=== PATIENT | male | born 1985 | race Hispanic/Latino ===

== ENCOUNTER 2017-05-14 07:14 | Emergency (ER) | payer SELFPAY | END 2017-05-14 09:25 | disposition left against medical advice (07) | LOC: ERS 07:14 | DX: Z53.21 Procedure and treatment not carried out due to patient leaving prior to being seen by health care provider (principal) ==

== ENCOUNTER 2017-05-14 16:07 | Emergency (ER) | payer SELFPAY ==
[2017-05-14] MEDS ORDERED: Morphine 2 MG/ML SYRINGE ONE (17:23)
[2017-05-14] MEDS ORDERED: Ibuprofen 800 MG TAB ONE (17:24)
[2017-05-14] MEDS ORDERED: Promethazine HCl 25 MG/ML VIAL ONE (17:24)
== END 2017-05-14 17:48 | disposition home or self-care (01) ==
LOC: ERS 16:07
DX: M54.9 Dorsalgia, unspecified (principal); F17.210 Nicotine dependence, cigarettes, uncomplicated; Z79.891 Long term (current) use of opiate analgesic
CPT/HCPCS: 96372; J2270; J2550

== ENCOUNTER 2017-07-23 22:55 | Emergency (ER) | payer SELFPAY ==
--- NOTE | 2017-07-23 23:47 | RAD ---
THREE VIEWS OF THE LUMBAR SPINE: INDICATIONS: Back pain. FINDINGS: There is a mild to moderate wedge compression fracture of L1, which is new from comparison from 2016. Spinal alignment is within normal limits. No retropulsed bone fragments are evident. No additiona l acute osseous abnormality is noted. IMPRESSION: Interval mild to moderate wedge compression abnormality of L1. New since 2016. POS: [facility]
== END 2017-07-24 02:35 | disposition home or self-care (01) ==
LOC: ERS 22:55
DX: S32.010A Wedge compression fracture of first lumbar vertebra, initial encounter for closed fracture (principal); F17.210 Nicotine dependence, cigarettes, uncomplicated; Y35.893A Legal intervention involving other specified means, suspect injured, initial encounter
CPT/HCPCS: 72100; 99406

== ENCOUNTER 2019-07-03 01:26 | Emergency (ER) | payer OTHER, SELFPAY ==
[2019-07-03] MEDS ORDERED: Acetaminophen 325 MG TAB ONE (03:03)
--- NOTE | 2019-07-03 09:30 | RAD ---
CHEST 1 VIEW: Date: 07/03/19 HISTORY: Cough. COMPARISON: 09/10/15. FINDINGS: Heart size is normal. The lungs are clear. No confluent pneumonia, edema, or pleural effusion. IMPRESSION: No acute intrathoracic disease. No evidence for pneumonia. Stable from prior study. POS: [facility]
== END 2019-07-03 03:40 | disposition home or self-care (01) ==
LOC: ERS 01:26
DX: F41.9 Anxiety disorder, unspecified (principal); B34.9 Viral infection, unspecified; I10 Essential (primary) hypertension; E11.9 Type 2 diabetes mellitus without complications; F32.9 Major depressive disorder, single episode, unspecified; F17.210 Nicotine dependence, cigarettes, uncomplicated; Z79.899 Other long term (current) drug therapy
CPT/HCPCS: 71045; 87804

== ENCOUNTER 2019-09-24 21:49 | Emergency (ER) | payer SELFPAY ==
[2019-09-24 22:21] LABS: #Basophils 0.1 thou/uL (0.0-0.2); #Eosinphils 0.1 thou/uL (0.0-0.7); #Lymphocytes 2.3 thou/uL (1.20-3.40); #Monocytes 0.9 thou/uL (0.11-0.59); #Neutrophils 8.1 thou/uL (1.40-6.50); %Basophils 0.4 % (0.0-1.0); %Eosinophils 0.9 % (0.0-10.0); %Lymphocytes 20.1 % (21.0-51.0); %Monocytes 7.7 % (0.0-10.0); %Neutrophils 70.8 % (42.0-75.0); Hemoglobin 16.1 g/dL (14.0-18.0); Mean Corpuscular HGB CONC 34.2 g/dL (32.0-36.0); Mean Corpuscular Hemoglobin 32.3 pg (27.0-31.0); Mean Corpuscular Volume 94.4 fL (78.0-98.0); Mean Platelet Volume 9.1 fL (7.4-10.4); Platelet Count 219 thou/uL (130-400); RBC Distribution Width 12.9 % (11.5-14.5); Red Blood Cell (RBC) Count 4.98 mill/uL (4.70-6.10); White Blood Cell (WBC) Count 11.4 thou/uL (4.8-10.8)
[2019-09-24] MEDS ORDERED: Ondansetron PF 4 MG/2 ML Vial ONE (22:29)
[2019-09-24] MEDS ORDERED: Acetaminophen 500 MG TAB ONE (22:29)
[2019-09-24 22:45] LABS: ALT (SGPT) 147 U/L (8-55); AST (SGOT) 61 U/L (5-34); Albumin 4.6 g/dL (3.5-5.0); Alkaline Phosphatase 78 U/L (40-110); Anion Gap 16 mmol/L (10-20); BUN (Urea Nitrogen) 15 mg/dL (8.9-20.6); Bilirubin, Total 0.8 mg/dL (0.2-1.2); Calc. Creatinine Clearance 0 mL/min (70-130); Calcium 9.7 mg/dL (7.8-10.44); Carbon Dioxide 22 mmol/L (22-29); Chloride 103 mmol/L (98-107); Estimated GFR-MDRD Greater than 90; Globulin 3.2 g/dL (2.4-3.5); Glucose 126 mg/dL (70-105); Lipase 13 U/L (8-78); Potassium 3.6 mmol/L (3.5-5.1); Protein, Total 7.8 g/dL (6.0-8.3); Sodium 137 mmol/L (136-145)
[2019-09-24 22:51] LABS: Acetaminophen Less than 6.0 mcg/mL (10.0-30.0); Alcohol Less than 10 mg/dL (Less than 10); CK (CPK) 749 U/L (30-200); Salicylate Less than 8.0 mg/dL (15.0-30.0)
[2019-09-24 23:04] LABS: Bacteria/HPF None Seen HPF (None Seen); Bilirubin Negative (Negative); Blood, Urine Trace (Negative); Clarity Clear (Clear); Glucose, Urine (Dipstick) Normal (Negative); Leukocyte Negative Leu/uL (Negative); Nitrite Negative (Negative); Protein, Urine (Dipstick) 30 mg/dL (Neg-Trace); Squamous Epithelial None Seen HPF (0-3); WBC/HPF 0-3 HPF (0-3)
[2019-09-24 23:15] LABS: Amphetamine Not Detected (NotDetected); Barbiturates Screen Not Detected (NotDetected); Benzodiazepine Screen Not Detected (NotDetected); Cocaine Metabolite Screen Detected (NotDetected); Medtox Control Line Valid? VALID (VALID); Medtox Reader # READER 1; Methadone Not Detected (NotDetected); Methamphetamine Not Detected (NotDetected); Opiate Screen Not Detected (NotDetected); Oxycodone Screen Not Detected (NotDetected); Phencyclidine (PCP) Not Detected (NotDetected); THC/Cannabinoid Screen Not Detected (NotDetected); Tricyclic Screen Not Detected (NotDetected)
[2019-09-24] MEDS ORDERED: Lorazepam 2 MG/ML VIAL ONE (23:29)
[2019-09-25] MEDS ORDERED: Nicotine 14 MG PATCH ONE ×2 (01:14→19:49)
[2019-09-25] MEDS ORDERED: hydrOXYzine Pamoate 25 mg Capsule ONE (05:56)
[2019-09-25] MEDS ORDERED: diphenhydrAMINE 25 MG CAP ONE (06:08)
[2019-09-25] MEDS ORDERED: Lorazepam 1 MG TAB ONE ×2 (06:59→21:10)
[2019-09-25] MEDS ORDERED: Lorazepam 2 MG/ML VIAL ONE (09:46)
[2019-09-25] MEDS ORDERED: hydrOXYzine 25 MG TAB ONE ×2 (15:34→19:49)
[2019-09-25] MEDS ORDERED: risperiDONE 1 MG TAB ONE (18:04)
[2019-09-26] MEDS ORDERED: hydrOXYzine 25 MG TAB PO SCH (09:00)
[2019-09-26] MEDS ORDERED: FLUoxetine HCl 20 MG CAP PO SCH (09:00)
[2019-09-26] MEDS ORDERED: OLANZapine 5 MG TAB PO SCH (09:00)
[2019-09-26] MEDS ORDERED: traZODone HCl 50 MG TAB PO PRN (20:43)
[2019-09-26] MEDS ORDERED: hydrOXYzine Pamoate 25 mg Capsule PO PRN (21:27)
[2019-09-26] MEDS ORDERED: Nicotine 14 MG PATCH TOP SCH (21:30)
[2019-09-26] MEDS ORDERED: Ibuprofen 200 MG TAB PO PRN (21:33)
[2019-09-27] MEDS ORDERED: risperiDONE 1 MG TAB PO SCH (09:00)
== END 2019-09-27 03:07 ==
LOC: ERS 21:49
DX: T43.592A Poisoning by other antipsychotics and neuroleptics, intentional self-harm, initial encounter (principal); I10 Essential (primary) hypertension; E11.9 Type 2 diabetes mellitus without complications; F32.9 Major depressive disorder, single episode, unspecified; F41.9 Anxiety disorder, unspecified; F17.210 Nicotine dependence, cigarettes, uncomplicated; Z79.899 Other long term (current) drug therapy
CPT/HCPCS: 36416; 80053; 80306; 80307; 81003; 81015; 82550; 83690; 84443; 84484; 85025; 93005; 96361; 96372; 96374; 96375; J2060; J2405; Q0163; Q0177

== ENCOUNTER 2020-03-28 17:53 | Emergency (ER) | payer SELFPAY ==
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
[2020-03-28 18:24] LABS: #Basophils 0.1 thou/uL (0.0-0.2); #Eosinphils 0.3 thou/uL (0.0-0.7); #Lymphocytes 1.9 thou/uL (1.20-3.40); #Monocytes 0.5 thou/uL (0.11-0.59); #Neutrophils 4.3 thou/uL (1.40-6.50); %Basophils 0.8 % (0.0-1.0); %Eosinophils 4.1 % (0.0-10.0); %Lymphocytes 26.8 % (21.0-51.0); %Monocytes 7.6 % (0.0-10.0); %Neutrophils 60.8 % (42.0-75.0); Hemoglobin 15.9 g/dL (14.0-18.0); Mean Corpuscular HGB CONC 34.5 g/dL (32.0-36.0); Mean Corpuscular Volume 95.7 fL (78.0-98.0); Mean Platelet Volume 9.3 fL (7.4-10.4); Platelet Count 181 thou/uL (130-400); RBC Distribution Width 12.4 % (11.5-14.5); Red Blood Cell (RBC) Count 4.81 mill/uL (4.70-6.10); White Blood Cell (WBC) Count 7.1 thou/uL (4.8-10.8)
[2020-03-28] MEDS ORDERED: Morphine 4 MG/ML VIAL ONE (18:26)
[2020-03-28] MEDS ORDERED: Ondansetron PF 4 MG/2 ML Vial ONE (18:27)
[2020-03-28 18:46] LABS: ALT (SGPT) 221 U/L (8-55); AST (SGOT) 93 U/L (5-34); Albumin 4.2 g/dL (3.5-5.0); Alkaline Phosphatase 90 U/L (40-110); Anion Gap 13 mmol/L (10-20); BUN (Urea Nitrogen) 11 mg/dL (8.9-20.6); Bilirubin, Total 0.8 mg/dL (0.2-1.2); Calc. Creatinine Clearance 0 mL/min (70-130); Calcium 9.3 mg/dL (7.8-10.44); Carbon Dioxide 23 mmol/L (22-29); Chloride 105 mmol/L (98-107); Estimated GFR-MDRD Greater than 90; Globulin 3.4 g/dL (2.4-3.5); Glucose 136 mg/dL (70-105); Potassium 3.4 mmol/L (3.5-5.1); Protein, Total 7.6 g/dL (6.0-8.3); Sodium 138 mmol/L (136-145)
--- NOTE | 2020-03-28 18:53 | RAD ---
RIGHT SHOULDER 3 VIEWS: 03/28/20 HISTORY: Right shoulder pain FINDINGS/IMPRESSION: An old right clavicular fracture is present. No acute fracture or dislocation is seen. POS: [facility]
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
[2020-03-28 20:22] LABS: Bacteria/HPF None Seen HPF (None Seen); Bilirubin Negative (Negative); Blood, Urine Negative (Negative); Clarity Clear (Clear); Glucose, Urine (Dipstick) 150 mg/dL (Negative); Ketone, Urine Trace mg/dL (Negative); Leukocyte Negative Leu/uL (Negative); Nitrite Negative (Negative); Protein, Urine (Dipstick) 50 mg/dL (Neg-Trace); RBC/HPF 0-3 HPF (0-3); Specific Gravity, Urine 1.028 (1.002-1.036); Squamous Epithelial None Seen HPF (0-3); WBC/HPF 0-3 HPF (0-3); pH, Urine 5.5 (5.0-9.0)
== END 2020-03-28 20:20 | disposition home or self-care (01) ==
LOC: ERS 17:53
DX: S43.401A Unspecified sprain of right shoulder joint, initial encounter (principal); R51 Headache; I10 Essential (primary) hypertension; E11.9 Type 2 diabetes mellitus without complications; F41.9 Anxiety disorder, unspecified; F32.9 Major depressive disorder, single episode, unspecified; F17.210 Nicotine dependence, cigarettes, uncomplicated; Z79.899 Other long term (current) drug therapy; Z79.84 Long term (current) use of oral hypoglycemic drugs; V89.2XXA Person injured in unspecified motor-vehicle accident, traffic, initial encounter
CPT/HCPCS: 36415; 70450; 71045; 72125; 80053; 81003; 81015; 83605; 85025; 96374; 96375; G0390; J2270; J2405

== ENCOUNTER 2020-06-02 12:24 | Emergency (ER) | payer SELFPAY ==
[2020-06-02 13:02] LABS: #Basophils 0.1 thou/uL (0.0-0.2); #Eosinphils 0.2 thou/uL (0.0-0.7); #Lymphocytes 2.1 thou/uL (1.20-3.40); #Monocytes 0.4 thou/uL (0.11-0.59); #Neutrophils 3.9 thou/uL (1.40-6.50); %Basophils 0.8 % (0.0-1.0); %Eosinophils 3.4 % (0.0-10.0); %Monocytes 6.6 % (0.0-10.0); %Neutrophils 58.2 % (42.0-75.0); Hemoglobin 16.5 g/dL (14.0-18.0); Mean Corpuscular Hemoglobin 33.1 pg (27.0-31.0); Mean Corpuscular Volume 94.5 fL (78.0-98.0); Mean Platelet Volume 10.5 fL (7.4-10.4); Platelet Count 146 thou/uL (130-400); Red Blood Cell (RBC) Count 4.99 mill/uL (4.70-6.10); White Blood Cell (WBC) Count 6.7 thou/uL (4.8-10.8)
[2020-06-02 13:06] LABS: Actual Bicarbonate (HCO3v) 19 mEq/L (22-28); Analyzer IN Cardio ER; Base Excess -4.2 mEq/L (-2.0 to +3.0); Calcium, Ionized (venous) 1.12 mmol/L (1.16-1.32); Chloride (VBG) 100 mmol/L (98-106); Potassium (VBG) 3.89 mmol/L (3.70-5.30); Sodium 133.6 mmol/L (133-146); pH (venous) 7.41 (7.32-7.43)
[2020-06-02 13:32] LABS: ALT (SGPT) 295 U/L (8-55); AST (SGOT) 164 U/L (5-34); Alkaline Phosphatase 123 U/L (40-110); Anion Gap 15 mmol/L (10-20); BUN (Urea Nitrogen) 11 mg/dL (8.9-20.6); Bilirubin, Total 0.8 mg/dL (0.2-1.2); Calc. Creatinine Clearance 0 mL/min (70-130); Calcium 9.2 mg/dL (7.8-10.44); Carbon Dioxide 22 mmol/L (22-29); Chloride 100 mmol/L (98-107); Estimated GFR-MDRD 74; Globulin 4.1 g/dL (2.4-3.5); Lipase 33 U/L (8-78); Magnesium 1.7 mg/dL (1.6-2.6); Phosphorus 3.3 mg/dL (2.3-4.7); Potassium 4.2 mmol/L (3.5-5.1); Protein, Total 8.1 g/dL (6.0-8.3); Sodium 133 mmol/L (136-145)
[2020-06-02 13:40] LABS: Bilirubin Negative (Negative); Blood, Urine Negative (Negative); Clarity Clear (Clear); Glucose, Urine (Dipstick) Greater than 1000 mg/dL (Negative); Ketone, Urine Trace mg/dL (Negative); Leukocyte Negative Leu/uL (Negative); Nitrite Negative (Negative); Protein, Urine (Dipstick) Negative (Neg-Trace); Urobilinogen Normal mg/dL (Less than 2); pH, Urine 5.5 (5.0-9.0)
[2020-06-02 13:43] LABS: Glucose 579 mg/dL (70-105)
--- NOTE | 2020-06-02 14:11 | CT ---
CT OF THE ABDOMEN AND PELVIS WITHOUT IV CONTRAST: Date: 06/02/2020 INDICATION: History of bilateral flank pain. COMPARISON: Prior CT of the chest, abdomen, and pelvis dated 09/10/2015. FINDINGS: Visualized lung bases are clear. There is diffuse fatty infiltration of the liver. The gallbladder is contracted. Pancreas, adrenal gl ands, and spleen appear within normal limits. No renal or ureteral calculus is demonstrated. There are a few scattered diverticula involving the colon without evidence of active diverticulitis. There is a normal appendix in the right lower quadrant. Small bowel is of normal caliber. Bladder is largely decompressed. The rectum and perirectal soft tissues are unremarkable appearing. N o definite acute osseous abnormality is demonstrated. There is mild wedging of the L1 vertebral level which appears to have been an interval development since the prior exam. This is stable to a compari son lumbar radiograph dated 07/24/2017. IMPRESSION: 1. No definite renal or ureteral calculus demonstrated. 2. Fatty liver. 3. Colonic diverticulosis. 4. Chronic L1 wedge compression fracture. POS: [facility]
[2020-06-02] MEDS ORDERED: Acetaminophen 325 MG TAB PO PRN (14:34)
[2020-06-02] MEDS ORDERED: Senokot S 8.6-50 MG TAB PO PRN (14:34)
[2020-06-02] MEDS ORDERED: Bisacodyl 10 MG SUPP PR PRN (14:34)
[2020-06-02] MEDS ORDERED: Ondansetron PF 4 MG/2 ML Vial IVP PRN (14:34)
[2020-06-02] MEDS ORDERED: HumaLOG 300 UNITS/3 ML VIAL SC PRN (14:35)
[2020-06-02] MEDS ORDERED: Dextrose 5% in Water 1,000 ML IV PRN (14:35)
[2020-06-02] MEDS ORDERED: Dextrose 50% Abboject 50 ML SYRINGE SLOW IVP PRN (14:35)
[2020-06-02] MEDS ORDERED: Sodium Chloride 0.9% 1,000 ML IV SCH (14:45)
[2020-06-02] MEDS ORDERED: Insulin Glargine 10 UNITS in Pre-Filled Syringe 1 EACH SC SCH ×2 (14:45→17:30)
[2020-06-02] MEDS ORDERED: Insulin Regular 300 UNITS/3 ML VIAL ONE (14:49)
--- NOTE | 2020-06-02 16:16 | CT ---
CT BRAIN NONCONTRAST: DATE: 06/02/2020 HISTORY: 34-year-old male with dizziness FINDINGS: There is no evidence of acute intra-axial or extra-axial hemorrhage. There is no midline shift or any other mass effect. There is no extra-axial fluid collection. The ventricles are normal in size and configuration. The tympanomastoid cavities, and the upper portions of the paranasal sinuses included in these images, are grossly clear. Calvarium is intact. IMPRESSION: Normal.
[2020-06-02 17:04] LABS: Glucose 487 mg/dL (70-105)
--- NOTE | 2020-06-02 17:09 | HP ---
CHIEF COMPLAINT: Generalized weakness. HISTORY OF PRESENT ILLNESS: The patient is a very pleasant 34-year-old male with history of depression, who presents to the hospital with polyuria, polydipsia going on for the past few weeks. The patient's sister at the bedside states that the patient has been having these symptoms for the past couple of weeks, and has been taking tons of water. He also has been noticing for the past couple of days, some blurry vision and also some generalized lower extremity weakness. He denies any fevers or chills. He did go to [facility], where he was noted to have an elevated sugar and I was notified that the hemoglobin A1c was 14, so he was asked to come into the hospital for further evaluation. In the ER initially on initial presentation, I was notified by the ER physician that the patient had a blood sugar in the 600s. He was given 2 L of normal saline. He was also given some Humalog. The patient's troponin x1 was negative. PAST MEDICAL HISTORY: He has a history of depression and PTSD. PAST SURGICAL HISTORY: He denies. FAMILY HISTORY: Father had heart disease and diabetes. ALLERGIES: NO KNOWN DRUG ALLERGIES. MEDICATIONS: He is on: 1. Ibuprofen. 2. Naproxen. 3. Psych med, which he does not recall the name. REVIEW OF SYSTEMS: All negative except for the ones mentioned above in the HPI. LABORATORY RESULTS: Sodium 133, potassium of 4.2, BUN of 11, creatinine of 1.13, glucose of 579. His AST is 166, ALT is 295, alkaline phosphatase 123. Troponin x1 is negative. Hematology, WBCs of 6.7, hemoglobin 16.5, hematocrit of 47.2, platelets of 146. The patient did have an abdomen and pelvis CT, which indicated no definite renal or ureteral calculi. Fatty liver, colonic diverticulosis, and chronic L1 wedge compression fracture. PHYSICAL EXAMINATION: VITAL SIGNS: Temperature of respirations are 18, blood pressure 132/80, . GENERAL: He is awake, alert, and oriented x3. Does not appear in distress. CV: S1, S2 present. No murmurs, rubs, gallops. ABDOMEN: Soft, nontender. Bowel sounds are present x2. EXTREMITIES: No edema. Pedal pulses are present x2. NEUROVASCULAR: No focal deficits noted. SKIN: No cuts, lesions, or bruises noted. ASSESSMENT AND PLAN: The patient is a very pleasant 34-year-old male, who presents to the hospital with complaints of generalized weakness and polydipsia. 1. Hyperglycemia, new diagnosis of type 2 diabetes. The patient's hemoglobin A1c per the ER physician noted at [facility] was 14. The patient has been given 2 L of normal saline. I will give him another additional liter. We will start him on insulin sliding scale, also Lantus. He does not have insurance. He will probably need a cheaper version at [facility]. However, his sister did state that he will follow up with [facility] and maybe get medications through there. We will also start him on lisinopril low dose for now. 2. Blurry vision. The patient does have blurry vision, which has gotten worse for the past couple of days. We will get a CT of brain. He will also need an ophthalmology consult or follow up with an eye doctor as an outpatient. 3. Fatty liver. I did discuss this with the patient and the patient's sister that he needs to diet, exercise, and weight loss. He does understand. I will also check a hepatitis panel because his LFTs are mildly elevated. He does have some tattooing around his body. 4. Deep venous thrombosis prophylaxis. We will put the patient on subcu heparin. Job ID: [id number]
[2020-06-02 18:02] LABS: HBSAg Index 0.26 S/CO (0-0.99); Hep A IgM AB Non-Reactive (NonReactive); Hep A IgM S/CO 0.21 S/CO (0-0.79); Hep B Surf Ag Non-Reactive S/CO (NonReactive); Hepatitis B Core IgM Abs Non-Reactive (NonReactive)
[2020-06-02 18:13] LABS: Hep C IgG Ab Reflex HepC Qnt (NonReactive); Hep C Index 12.59 S/CO (0-0.79)
[2020-06-03] MEDS ORDERED: Insulin Glargine 10 UNITS in Pre-Filled Syringe 1 EACH SC SCH (09:00)
[2020-06-03] MEDS ORDERED: Enoxaparin Sodium 40 MG/0.4 ML SYRINGE SC SCH (09:00)
[2020-06-03 10:56] LABS: SARS-CoV-2 MS2 Positive; SARS-CoV-2 N Gene Negative; SARS-CoV-2 S Gene Negative; SARS-CoV-2 by NAA Not Detected (NotDetected); SARS-CoV-2 orf1ab Negative
[2020-06-05 12:15] LABS: HCV log10 6.885 (.); Hep C PCR-Quant 7670000 IU/mL (.)
== END 2020-06-02 18:27 | disposition short-term general hospital (02) ==
LOC: ERS 12:24
DX: R73.9 Hyperglycemia, unspecified (principal); E86.0 Dehydration; E86.1 Hypovolemia; R63.1 Polydipsia; R35.8 Other polyuria; F41.9 Anxiety disorder, unspecified; I10 Essential (primary) hypertension; F32.9 Major depressive disorder, single episode, unspecified; F17.210 Nicotine dependence, cigarettes, uncomplicated; Z79.899 Other long term (current) drug therapy
CPT/HCPCS: 36415; 36416; 70450; 74176; 80053; 80074; 81003; 82010; 82805; 83690; 83735; 84100; 84484; 85025; 87522; 87635; 93005; 96360; 96361; J1815; U0003

== ENCOUNTER 2020-08-20 07:15 | Outpatient (CLI) | payer OTHER ==
--- NOTE | 2020-08-20 07:58 | ULT ---
COMPLETE ABDOMEN ULTRASOUND INDICATION: Elevated LFTs TECHNIQUE: Grayscale, color Doppler and spectral Doppler were obtained of the abdomen. COMPARISON: None FINDINGS: Liver: There is diffuse mild increased echogenicity of the liver suspicious for mild fatty infiltrati on. Main portal vein: Patent with appropriate hepatopedal flow Pancreas: Visualized aspects appeared normal. Gallbladder: Normal. No sonographic Ybarra's sign reported. Common bile duct:4.7 mm. Right kidney: The right kidney measured 12.7 x 6.4 x 5.1 cm. No focal renal lesion or hydronephrosis is evident. Left kidney: The left kidney measured 12.9 x 6.3 x 6.9 cm. There is a 1.9 cm inferior pole left perip elvic cyst. Aorta and IVC: Appeared within normal limits. Spleen: 11.3 cmin length. No focal splenic lesion is evident. Free fluid: None. IMPRESSION: 1. Mild fatty liver. 2. Left renal cyst.
== END 2020-08-20 07:16 | disposition home or self-care (01) ==
LOC: BICULT 07:15
PROVIDERS: ATTEND Nurse Practitioner Family
DX: R74.8 Abnormal levels of other serum enzymes (principal); K76.0 Fatty (change of) liver, not elsewhere classified; N28.1 Cyst of kidney, acquired
CPT/HCPCS: 93975

== ENCOUNTER 2020-09-17 18:07 | Emergency (ER) | payer OTHER ==
[2020-09-17] MEDS ORDERED: HYDROcodone/Acetaminophen 10/325 mg Tablet ONE (18:34)
[2020-09-17] MEDS ORDERED: diphenhydrAMINE 25 MG CAP ONE (19:10)
[2020-09-17 19:13] LABS: Bacteria/HPF None Seen HPF (None Seen); Bilirubin Negative (Negative); Blood, Urine Negative (Negative); Clarity Clear (Clear); Glucose, Urine (Dipstick) Greater than 1000 mg/dL (Negative); Ketone, Urine Negative (Negative); Leukocyte Negative Leu/uL (Negative); Nitrite Negative (Negative); Protein, Urine (Dipstick) 30 mg/dL (Neg-Trace); Specific Gravity, Urine 1.038 (1.002-1.036); Squamous Epithelial None Seen HPF (0-3); Urobilinogen Normal mg/dL (Less than 2); WBC/HPF 0-3 HPF (0-3)
[2020-09-17 19:14] LABS: Sperm/HPF 1+ HPF (None Seen)
== END 2020-09-17 20:05 | disposition home or self-care (01) ==
LOC: EEVIPCON 18:07 → ERS 18:07
DX: T78.40XA Allergy, unspecified, initial encounter (principal); N48.1 Balanitis; I10 Essential (primary) hypertension; E11.9 Type 2 diabetes mellitus without complications; F17.210 Nicotine dependence, cigarettes, uncomplicated; Z79.4 Long term (current) use of insulin; Z79.899 Other long term (current) drug therapy
CPT/HCPCS: 81003; 81015; 99283; Q0163

== ENCOUNTER 2021-03-20 00:07 | Emergency (ER) | payer OTHER, SELFPAY ==
[2021-03-20] MEDS ORDERED: metFORMIN 500 MG TAB PO SCH (02:30)
== END 2021-03-20 10:06 | disposition home or self-care (01) ==
LOC: ERS 00:07
DX: F41.9 Anxiety disorder, unspecified (principal); Z76.0 Encounter for issue of repeat prescription; I10 Essential (primary) hypertension; E11.9 Type 2 diabetes mellitus without complications; F17.210 Nicotine dependence, cigarettes, uncomplicated; Z79.4 Long term (current) use of insulin; Z79.899 Other long term (current) drug therapy
CPT/HCPCS: 36416; 99284

== ENCOUNTER 2021-11-26 19:43 | Emergency (ER) | payer OTHER, SELFPAY ==
[2021-11-26 20:29] LABS: Bilirubin Negative (Negative); Blood, Urine Negative (Negative); Clarity Clear (Clear); Glucose, Urine (Dipstick) Greater than 1000 mg/dL (Negative); Ketone, Urine Negative (Negative); Leukocyte Negative Leu/uL (Negative); Nitrite Negative (Negative); Protein, Urine (Dipstick) Negative (Neg-Trace); Specific Gravity, Urine 1.029 (1.002-1.036); Urobilinogen Normal mg/dL (Less than 2); pH, Urine 6.5 (5.0-9.0)
[2021-11-26] MEDS ORDERED: Acetaminophen 500 MG TAB ONE (20:32)
[2021-11-26] MEDS ORDERED: cefTRIAXone\\ROCEPHIN 1 GM VIAL ONE (22:03)
[2021-11-26] MEDS ORDERED: Lidocaine 1% PF 5 ML VIAL ONE (22:05)
[2021-11-26] MEDS ORDERED: Azithromycin 250 MG TAB ONE (22:48)
[2021-11-27 19:25] LABS: Chlam.trachomatis by PCR,Urine Not Detected (NotDetected)
== END 2021-11-26 23:00 | disposition home or self-care (01) ==
LOC: ERS 19:43
DX: N47.6 Balanoposthitis (principal); R30.0 Dysuria; N48.89 Other specified disorders of penis; Z79.899 Other long term (current) drug therapy; Z79.84 Long term (current) use of oral hypoglycemic drugs; I10 Essential (primary) hypertension; E11.9 Type 2 diabetes mellitus without complications; F17.210 Nicotine dependence, cigarettes, uncomplicated
CPT/HCPCS: 36416; 81003; 87491; 87591; 96372; 99283; J0696

== ENCOUNTER 2022-05-01 13:33 | Emergency (ER) | payer SELFPAY | END 2022-05-01 14:33 | disposition home or self-care (01) | LOC: ERS 13:33 | DX: S91.312A Laceration without foreign body, left foot, initial encounter (principal); I10 Essential (primary) hypertension; E11.9 Type 2 diabetes mellitus without complications; F17.210 Nicotine dependence, cigarettes, uncomplicated; Z79.84 Long term (current) use of oral hypoglycemic drugs; W25.XXXA Contact with sharp glass, initial encounter ==

== ENCOUNTER 2022-05-04 15:49 | Emergency (ER) | payer SELFPAY ==
[2022-05-04 16:24] LABS: Actual Bicarbonate (HCO3v) 25 mEq/L (22-28); Base Excess 1.3 mEq/L (-2.0 to +3.0); Calcium, Ionized (venous) 1.11 mmol/L (1.16-1.32); Chloride (VBG) 104 mmol/L (98-106); Hemoglobin (Hb) 16.5 g/dL (13.2-17.3); Potassium (VBG) 3.71 mmol/L (3.70-5.30); Sodium 139.3 mmol/L (133-146); pH (venous) 7.45 (7.32-7.43)
[2022-05-04 16:25] LABS: #Eosinphils 0.2 thou/uL (0.0-0.7); #Lymphocytes 1.7 thou/uL (1.20-3.40); #Monocytes 0.5 thou/uL (0.11-0.59); #Neutrophils 6.6 thou/uL (1.40-6.50); %Basophils 0.5 % (0.0-1.0); %Eosinophils 2.3 % (0.0-10.0); %Lymphocytes 19.1 % (21.0-51.0); %Monocytes 5.6 % (0.0-10.0); %Neutrophils 72.5 % (42.0-75.0); Hemoglobin 15.7 g/dL (14.0-18.0); Mean Corpuscular HGB CONC 33.1 g/dL (32.0-36.0); Mean Corpuscular Hemoglobin 31.9 pg (27.0-31.0); Mean Corpuscular Volume 96.3 fL (78.0-98.0); Mean Platelet Volume 8.5 fL (7.4-10.4); Platelet Count 226 thou/uL (130-400); RBC Distribution Width 12.3 % (11.5-14.5); Red Blood Cell (RBC) Count 4.92 mill/uL (4.70-6.10)
[2022-05-04 16:45] LABS: Lipase 21 U/L (8-78); Magnesium 1.9 mg/dL (1.6-2.6); Phosphorus 2.2 mg/dL (2.3-4.7)
[2022-05-04 16:47] LABS: ALT (SGPT) 81 U/L (8-55); AST (SGOT) 36 U/L (5-34); Albumin 4.1 g/dL (3.5-5.0); Alkaline Phosphatase 102 U/L (40-110); Anion Gap 12 mmol/L (10-20); BUN (Urea Nitrogen) 9 mg/dL (8.9-20.6); Bilirubin, Total 0.6 mg/dL (0.2-1.2); Calc. Creatinine Clearance 0 mL/min (70-130); Calcium 9.4 mg/dL (7.8-10.44); Carbon Dioxide 25 mmol/L (22-29); Chloride 106 mmol/L (98-107); Estimated GFR 114; Globulin 3.1 g/dL (2.4-3.5); Glucose 213 mg/dL (70-105); Potassium 3.8 mmol/L (3.5-5.1); Protein, Total 7.2 g/dL (6.0-8.3); Sodium 139 mmol/L (136-145)
== END 2022-05-04 20:00 | disposition left against medical advice (07) ==
LOC: ERS 15:49
DX: Z53.21 Procedure and treatment not carried out due to patient leaving prior to being seen by health care provider (principal)
CPT/HCPCS: 36415; 71045; 80053; 82010; 82805; 83690; 83735; 84100; 84484; 85025; 93005; 94760

== ENCOUNTER 2022-05-05 02:32 | Emergency (ER) | payer SELFPAY ==
[2022-05-05 04:14] LABS: #Basophils 0.1 thou/uL (0.0-0.2); #Eosinphils 0.4 thou/uL (0.0-0.7); #Monocytes 0.6 thou/uL (0.11-0.59); #Neutrophils 4.9 thou/uL (1.40-6.50); %Basophils 0.8 % (0.0-1.0); %Eosinophils 4.2 % (0.0-10.0); %Lymphocytes 33.5 % (21.0-51.0); %Monocytes 6.7 % (0.0-10.0); %Neutrophils 54.8 % (42.0-75.0); Hemoglobin 14.7 g/dL (14.0-18.0); Mean Corpuscular HGB CONC 31.7 g/dL (32.0-36.0); Mean Corpuscular Hemoglobin 30.3 pg (27.0-31.0); Mean Corpuscular Volume 95.6 fL (78.0-98.0); Mean Platelet Volume 9.1 fL (7.4-10.4); Platelet Count 218 thou/uL (130-400); RBC Distribution Width 12.4 % (11.5-14.5); Red Blood Cell (RBC) Count 4.85 mill/uL (4.70-6.10)
[2022-05-05 04:34] LABS: ALT (SGPT) 74 U/L (8-55); AST (SGOT) 30 U/L (5-34); Alkaline Phosphatase 113 U/L (40-110); Anion Gap 12 mmol/L (10-20); BUN (Urea Nitrogen) 6 mg/dL (8.9-20.6); Bilirubin, Total 0.5 mg/dL (0.2-1.2); Calc. Creatinine Clearance 0 mL/min (70-130); Calcium 9.8 mg/dL (7.8-10.44); Carbon Dioxide 28 mmol/L (22-29); Chloride 103 mmol/L (98-107); Estimated GFR 113; Globulin 3.4 g/dL (2.4-3.5); Glucose 230 mg/dL (70-105); Lipase 27 U/L (8-78); Magnesium 1.9 mg/dL (1.6-2.6); Potassium 3.4 mmol/L (3.5-5.1); Protein, Total 7.4 g/dL (6.0-8.3); Sodium 140 mmol/L (136-145)
[2022-05-05 04:44] LABS: Actual Bicarbonate (HCO3v) 30 mEq/L (22-28); Analyzer IN Cardio ER; Base Excess 3.8 mEq/L (-2.0 to +3.0); Calcium, Ionized (venous) 1.19 mmol/L (1.16-1.32); Chloride (VBG) 102 mmol/L (98-106); Hemoglobin (Hb) 16.2 g/dL (13.2-17.3); Potassium (VBG) 3.37 mmol/L (3.70-5.30); Sodium 140.5 mmol/L (133-146)
[2022-05-05 04:51] LABS: Bilirubin Negative (Negative); Blood, Urine Negative (Negative); Clarity Turbid (Clear); Glucose, Urine (Dipstick) Greater than 1000 mg/dL (Negative); Ketone, Urine Negative (Negative); Leukocyte Negative Leu/uL (Negative); Nitrite Negative (Negative); Protein, Urine (Dipstick) Negative (Neg-Trace); Specific Gravity, Urine 1.022 (1.002-1.036); Urobilinogen Normal mg/dL (Less than 2)
== END 2022-05-05 05:29 | disposition home or self-care (01) ==
LOC: ERS 02:32
DX: R42 Dizziness and giddiness (principal); E11.65 Type 2 diabetes mellitus with hyperglycemia; I10 Essential (primary) hypertension; F17.210 Nicotine dependence, cigarettes, uncomplicated
CPT/HCPCS: 36416; 71045; 80053; 81003; 82010; 82805; 83690; 83735; 84443; 84484; 85025; 93005

== ENCOUNTER 2022-05-15 21:12 | Emergency (ER) | payer SELFPAY | END 2022-05-15 21:39 | LOC: ERS 21:12 | DX: Z02.89 Encounter for other administrative examinations (principal); F19.10 Other psychoactive substance abuse, uncomplicated; R45.851 Suicidal ideations | CPT/HCPCS: 99284 ==

== ENCOUNTER 2023-05-11 16:12 | Emergency (ER) | payer SELFPAY ==
[2023-05-11 16:50] LABS: #Eosinphils 0.3 thou/uL (0.0-0.7); #Monocytes 0.7 thou/uL (0.11-0.59); #Neutrophils 4.7 thou/uL (1.40-6.50); %Basophils 0.4 % (0.0-1.0); %Eosinophils 3.3 % (0.0-10.0); %Monocytes 8.8 % (0.0-10.0); %Neutrophils 57.3 % (42.0-75.0); Hematocrit 44.8 % (42.0-52.0); Hemoglobin 16.1 g/dL (14.0-18.0); Mean Corpuscular HGB CONC 35.9 g/dL (32.0-36.0); Mean Corpuscular Hemoglobin 31.4 pg (27.0-31.0); Mean Corpuscular Volume 87.5 fl (78.0-98.0); Mean Platelet Volume 11.8 fL (7.4-10.4); Platelet Count 194 10x3/uL (130-400); RBC Distribution Width 12.9 % (11.5-14.5); Red Blood Cell (RBC) Count 5.12 mill/uL (4.70-6.10); White Blood Cell (WBC) Count 8.2 10x3/uL (4.8-10.8)
[2023-05-11 17:16] LABS: ALT (SGPT) 159 U/L (8-55); AST (SGOT) 70 U/L (5-34); Albumin 4.8 g/dL (3.5-5.0); Alkaline Phosphatase 154 U/L (40-110); Anion Gap 15 mmol/L (10-20); BUN (Urea Nitrogen) 8 mg/dL (8.9-20.6); Bilirubin, Total 0.5 mg/dL (0.2-1.2); Calc. Creatinine Clearance 0 mL/min (70-130); Carbon Dioxide 23 mmol/L (22-29); Chloride 103 mmol/L (98-107); Estimated GFR 108; Globulin 3.5 g/dL (2.4-3.5); Glucose 351 mg/dL (70-105); Potassium 3.8 mmol/L (3.5-5.1); Protein, Total 8.3 g/dL (6.0-8.3); Sodium 137 mmol/L (136-145)
[2023-05-11 20:42] LABS: Bacteria/HPF None Seen HPF (None Seen); Bilirubin Negative (Negative); Blood, Urine Negative (Negative); CAUTI Indications for Culture Dysuria,urgency,freq; Clarity Clear (Clear); Glucose, Urine (Dipstick) Greater than 1000 mg/dL (Negative); Ketone, Urine Negative (Negative); Leukocyte Negative Leu/uL (Negative); Nitrite Negative (Negative); Protein, Urine (Dipstick) 30 mg/dL (Neg-Trace); RBC/HPF 0-3 HPF (0-3); Specific Gravity, Urine 1.043 (1.002-1.036); Squamous Epithelial None Seen HPF (0-3); Urobilinogen Normal mg/dL (Less than 2); WBC/HPF None Seen HPF (0-3); pH, Urine 5.5 (5.0-9.0)
[2023-05-11 20:43] LABS: Urine Culture Reflex No No
== END 2023-05-11 21:20 | disposition home or self-care (01) ==
LOC: ERS 16:12
DX: E11.65 Type 2 diabetes mellitus with hyperglycemia (principal); I10 Essential (primary) hypertension; F17.210 Nicotine dependence, cigarettes, uncomplicated
CPT/HCPCS: 36416; 80053; 81001; 82010; 83605; 85025; 96360; 96361

== ENCOUNTER 2023-08-29 16:40 | Emergency (ER) | payer SELFPAY ==
[2023-08-29] MEDS ORDERED: Ketorolac Tromethamine 30 MG (1 mL) VIAL ONE (16:59)
[2023-08-29] MEDS ORDERED: Diazepam 5 MG TAB ONE (17:00)
== END 2023-08-29 18:02 | disposition home or self-care (01) ==
LOC: ERS 16:40
DX: S39.012A Strain of muscle, fascia and tendon of lower back, initial encounter (principal); M54.42 Lumbago with sciatica, left side; I10 Essential (primary) hypertension; E11.9 Type 2 diabetes mellitus without complications; F17.210 Nicotine dependence, cigarettes, uncomplicated; W19.XXXA Unspecified fall, initial encounter; Y93.01 Activity, walking, marching and hiking; Z59.00 Homelessness unspecified
CPT/HCPCS: 72128; 72131; 96372; J1885

== ENCOUNTER 2023-08-30 20:30 | Emergency (ER) | payer SELFPAY ==
[2023-08-30 22:40] LABS: #Basophils 0.1 thou/uL (0.0-0.2); #Eosinphils 0.2 thou/uL (0.0-0.7); #Monocytes 0.8 thou/uL (0.11-0.59); %Basophils 0.6 % (0.0-1.0); %Eosinophils 2.7 % (0.0-10.0); %Lymphocytes 28.4 % (21.0-51.0); %Monocytes 9.5 % (0.0-10.0); %Neutrophils 58.6 % (42.0-75.0); Hematocrit 42.7 % (42.0-52.0); Hemoglobin 14.9 g/dL (14.0-18.0); Mean Corpuscular HGB CONC 34.9 g/dL (32.0-36.0); Mean Corpuscular Hemoglobin 31.2 pg (27.0-31.0); Mean Corpuscular Volume 89.5 fl (78.0-98.0); Mean Platelet Volume 11.7 fL (7.4-10.4); Platelet Count 199 10x3/uL (130-400); RBC Distribution Width 12.7 % (11.5-14.5); Red Blood Cell (RBC) Count 4.77 mill/uL (4.70-6.10); White Blood Cell (WBC) Count 8.5 10x3/uL (4.8-10.8)
[2023-08-30 23:03] LABS: Acetaminophen Less than 10 mcg/mL (10.0-30.0); Alcohol Less than 10.0 mg/dL (Less than 10); Salicylate Less than 8.0 mg/dL (15.0-30.0)
[2023-08-30 23:07] LABS: ALT (SGPT) 77 U/L (8-55); AST (SGOT) 42 U/L (5-34); Albumin 3.9 g/dL (3.5-5.0); Alkaline Phosphatase 97 U/L (40-110); Anion Gap 13 mmol/L (10-20); BUN (Urea Nitrogen) 12 mg/dL (8.9-20.6); Bilirubin, Total 0.9 mg/dL (0.2-1.2); Calc. Creatinine Clearance 0 mL/min (70-130); Carbon Dioxide 24 mmol/L (22-29); Chloride 100 mmol/L (98-107); Estimated GFR 96; Globulin 2.9 g/dL (2.4-3.5); Glucose 373 mg/dL (70-105); Potassium 3.5 mmol/L (3.5-5.1); Protein, Total 6.8 g/dL (6.0-8.3); Sodium 133 mmol/L (136-145)
[2023-08-31 07:46] LABS: Amphetamine Detected (NotDetected); Barbiturates Screen Not Detected (NotDetected); Benzodiazepine Screen Detected (NotDetected); Cocaine Metabolite Screen Not Detected (NotDetected); Methadone Not Detected (NotDetected); Methamphetamine Detected (NotDetected); Opiate Screen Not Detected (NotDetected); Oxycodone Screen Not Detected (NotDetected); Phencyclidine (PCP) Not Detected (NotDetected); THC/Cannabinoid Screen Not Detected (NotDetected); Tricyclic Screen Not Detected (NotDetected)
[2023-08-31 07:53] LABS: Bacteria/HPF None Seen HPF (None Seen); Bilirubin Negative (Negative); Blood, Urine Negative (Negative); CAUTI Indications for Culture Alt mental st,lethar; Clarity Clear (Clear); Glucose, Urine (Dipstick) Greater than 1000 mg/dL (Negative); Ketone, Urine Negative (Negative); Leukocyte Negative Leu/uL (Negative); Nitrite Negative (Negative); Protein, Urine (Dipstick) 20 mg/dL (Neg-Trace); RBC/HPF None Seen HPF (0-3); Specific Gravity, Urine 1.034 (1.002-1.036); Squamous Epithelial None Seen HPF (0-3); Urobilinogen Normal mg/dL (Less than 2); WBC/HPF 0-3 HPF (0-3); pH, Urine 5.5 (5.0-9.0)
[2023-08-31 07:54] LABS: Urine Culture Reflex No No
== END 2023-08-31 10:41 | disposition home or self-care (01) ==
LOC: ERS 20:30
DX: F60.0 Paranoid personality disorder (principal); R94.5 Abnormal results of liver function studies; E11.65 Type 2 diabetes mellitus with hyperglycemia; I10 Essential (primary) hypertension; F17.210 Nicotine dependence, cigarettes, uncomplicated; Z79.84 Long term (current) use of oral hypoglycemic drugs; Z79.4 Long term (current) use of insulin
CPT/HCPCS: 36415; 80053; 80306; 80307; 81001; 85025; 93005

== ENCOUNTER 2025-03-07 14:24 | Emergency (ER) | payer SELFPAY | END 2025-03-07 17:14 | LOC: ERS 14:24 | DX: Z47.89 Encounter for other orthopedic aftercare (principal); F17.210 Nicotine dependence, cigarettes, uncomplicated; I10 Essential (primary) hypertension; E11.9 Type 2 diabetes mellitus without complications | CPT/HCPCS: 99283 ==